=== PATIENT | female | born 1965 | race Two or more races ===

== ENCOUNTER 2018-01-30 12:59 | Emergency (ER) | payer OTHER ==
[2018-01-30 13:54] VITALS: BP 155/82
--- NOTE | 2018-01-30 13:59 | ED ---
Throat Pain/Nasal Congestion - HPI Summary HPI Summary: This patient is a 52 year old F BIBA to ED from her own residence with a chief complaint of foreign body stuck in her throat since 1100. She was eating steak and choked on it. EMS reports she does not have difficulty breathing. She also has had previous episodes of foreign bodies stuck in her throat, but is usually able to clear it this time. The patient rates the pain 2/10 in severity. Symptoms aggravated by nothing. Symptoms alleviated by nothing. Patient reports that she is currently unable to swallow water. Current vitals include 88 BPM, 92 O2 sat, and BP 152/90. Patient is a smoker. Home Medications Medication Instructions Recorded Confirmed Type Albuterol HFA INHALER* [Proair Hfa 2 puff INH Q4H PRN 10/20/12 08/22/13 History Inhaler*] Fesoterodine Fumarate [Toviaz] 8 mg PO DAILY 10/20/12 08/22/13 History Gabapentin CAP(*) [Neurontin 600 mg PO TID 10/20/12 08/22/13 History CAP(*)] Lisinopril TAB* [Prinivil TAB*] 5 mg PO DAILY 10/20/12 08/22/13 History LoraTADine TAB(NF) [Claritin TAB*] 10 mg PO DAILY 10/20/12 08/22/13 History Mirtazapine TAB* [Remeron TAB*] 7.5 mg PO BEDTIME 10/20/12 08/22/13 History Omeprazole CAP* [PriLOSEC CAP*] 40 mg PO DAILY 10/20/12 08/22/13 History Symbicort 4.5 - 80 act INH BID 06/25/13 08/22/13 History risperiDONE TAB* [Risperdal*] 3 mg PO BEDTIME 06/25/13 08/22/13 History Vilazodone (NF) [Viibryd] 40 mg PO DAILY 08/22/13 08/22/13 History - History of Current Complaint Chief Complaint: EDForeignBodyEsophag Time Seen by Provider: 01/30/18 13:07 Hx Obtained From: Patient, EMS Onset/Duration: Sudden Onset, Lasting Hours, Still Present Severity: Mild - 2/10 Associated Signs And Symptoms: Positive: FB Sensation Cough: None Related History: Other (Noted In Comments) - prior episodes, cleared spontaneously - Allergies/Home Medications Allergies/Adverse Reactions: Allergies Allergy/AdvReac Type Severity Reaction Status Date / Time No Known Allergies Allergy Verified 08/22/13 12:53 PMH/Surg Hx/FS Hx/Imm Hx Previously Healthy: No Endocrine/Hematology History: Reports: Hx Diabetes Denies: Hx Anticoagulant Therapy, Hx Thyroid Disease Cardiovascular History: Reports: Hx Hypertension Denies: Hx Congestive Heart Failure, Hx Pacemaker/ICD Respiratory History: Reports: Hx Asthma Denies: Hx Chronic Obstructive Pulmonary Disease (COPD) GI History: Reports: Other GI Disorders - acid reflux, prior episodes of esophageal foreign body sensation Musculoskeletal History: Reports: Hx Arthritis Sensory History: Reports: Hx Hearing Aid Neurological History: Denies: Hx Dementia, Hx Seizures Psychiatric History: Reports: Hx Anxiety, Hx Depression, Hx Post Traumatic Stress Disorder, Hx Inpatient Treatment, Hx Community Mental Health Tx, Hx Bipolar Disorder, Hx Suicide Attempt, Hx Substance Abuse Denies: Hx Eating Disorder, Hx of Violent Episodes Against Others - Cancer History Hx Chemotherapy: No Hx Radiation Therapy: No - Surgical History Surgery Procedure, Year, and Place: C-sections x 2 Infectious Disease History: No Infectious Disease History: Denies: Hx Hepatitis, Hx Human Immunodeficiency Virus (HIV), Traveled Outside the [place] in Last 30 Days - Family History Known Family History: Positive: Cardiac Disease - Social History Alcohol Use: None Substance Use Type: Reports: None Smoking Status (MU): Current Every Day Smoker Type: Cigarettes Review of Systems Constitutional: Negative Positive: Other - foreign body sensation in throat, unable to swallow water Cardiovascular: Negative Positive: Other - denies difficulty breathing Gastrointestinal: Negative Skin: Negative Neurological: Negative Psychological: Normal All Other Systems Reviewed And Are Negative: Yes Physical Exam - Summary Physical Exam Summary: Appearance: Well-appearing, no pain distress, well-nourished Skin: Warm, color reflects adequate perfusion, dry Head: Normal Head/Face inspection, atraumatic Eyes: Conjunctiva clear ENT: Patient points to sternal notch for the level of obstruction, pharynx clear , no swelling, able to swallow secretions, not drooling Neck: Supple, no nodes, no JVD Respiratory: Lungs clear, normal breath sounds, no respiratory distress Cardio: RRR, No murmur, pulses normal, brisk capillary refill Abdomen: Soft, nontender Bowel sounds: Present Musculoskeletal: Strength Intact/ROM intact, no calf tenderness, no edema. Psychological: Normal Neuro: Alert, muscle tone normal, no focal deficit Triage Information Reviewed: Yes Vital Signs On Initial Exam: Initial Vitals Temp Pulse Resp BP Pulse Ox 97.8 F 88 18 152/90 92 01/30/18 13:00 01/30/18 13:00 01/30/18 13:00 01/30/18 13:00 01/30/18 13:00 Vital Signs Reviewed: Yes Diagnostics - Vital Signs Vital Signs Temp Pulse Resp BP Pulse Ox 01/30/18 13:00 97.8 F 88 18 152/90 92 - Laboratory Lab Statement: Any lab studies that have been ordered have been reviewed, and results considered in the medical decision making process. Re-Evaluation - Re-Evaluation First Eval Re-Evaluation Time: 13:36 Change: Improved Comment: The patient reports the foreign body has passed spontaneously. I had the patient drink 8 ounces of water and she drank it without choking, gagging, and aspiration. The glucose level was at 173. The patient will be discharged. Patient understands and is agreeable with this plan. EENT Course/Dx - Course Assessment/Plan: This patient is a 52 year old F BIBA to ED from her own residence with a chief complaint of foreign body stuck in her throat since 1100. In the ED course, the foreign body passed spontaneously and the patient was able to drink 8 ounces of water without choking, gagging, and aspiration. The glucose level by fingerstick was 173. The patient will be discharged with dx of tobacco use disorder, elevated blood pressure under poor control, and esophageal foreign body. Patient understands and is agreeable with this plan.High blood pressure noted. Pt medications reviewed this visit. - Differential Diagnoses Differential Diagnoses: Foreign Body - Diagnoses Provider Diagnoses: Tobacco abuse disorder, Elevated blood pressure reading with diagnosis of hypertension, Esophageal foreign body Discharge - Sign-Out/Discharge Documenting (check all that apply): Patient Departure - Discharge Plan Condition: Stable Disposition: HOME Patient Education Materials: Esophageal Foreign Body (ED) Referrals: Jose L Hall MD [Primary Care Provider] - 2 Days Additional Instructions: The meat in your throat passed spontaneously while you were in the ER. Return to the ER if you have new or worsening symptoms. - Billing Disposition and Condition Condition: STABLE Disposition: Home - Attestation Statements Document Initiated by Scribe: Yes Documenting Scribe: Garrett Lewis Provider For Whom Scribe is Documenting (Include Credential): Bindu Evans Scribe Attestation: IGarrett, scribed for Bindu Evans on 02/04/18 at 2224. Scribe Documentation Reviewed: Yes Provider Attestation: The documentation as recorded by the Garrett nguyen accurately reflects the service I personally performed and the decisions made by me, Bindu Evans
== END 2018-01-30 13:45 | disposition home or self-care (01) ==
LOC: ED 12:59
DX: T18.128A Food in esophagus causing other injury, initial encounter (principal); R03.0 Elevated blood-pressure reading, without diagnosis of hypertension; X58.XXXA Exposure to other specified factors, initial encounter; Y92.9 Unspecified place or not applicable; F17.210 Nicotine dependence, cigarettes, uncomplicated
CPT/HCPCS: 99282

== ENCOUNTER 2024-06-19 06:32 | Observation (INO) ==
[2024-06-19] MEDS: Albuterol/Ipratropium NEB.SOL (2.5/0.5 MG) 3 ML NEB.SOLN INH ONE (07:30)
[2024-06-19 07:35] LABS: ABS Basophils 0.1 10^3/uL (0.0-0.1); ABS Lymphocytes 0.7 10^3/uL (1.0-4.8); Hematocrit 43.7 % (35-45); Hemoglobin 14.9 g/dL (11.5-14.3); Lymphocyte % 6.1 %; Mean Corpuscular Hemoglobin 29.9 pg (27-33); Mean Corpuscular Hgb Conc 34.1 g/dL (31-36); Mean Corpuscular Volume 87.8 fL (80-97); Mean Platelet Volume 8.4 fL (7.5-11.2); Platelet Count 203 10^3/uL (150-450); Red Blood Count 4.98 10^6/uL (3.63-4.92); Red Cell Distribution Width 13.6 % (12-17); White Blood Count 11.8 10^3/uL (3.8-11.8)
[2024-06-19] MEDS: cefTRIAXone 1 gm/50 mL D5W 1 GM/50 ML BAG IV ONE (07:54)
[2024-06-19 07:57] LABS: Activated Partial Thrombo Time 28.7 seconds (26.0-38.0); INR 1.13 (0.85-1.14)
[2024-06-19] MEDS: Azithromycin 500 mg/250 ml NS 500 MG/250 ML BAG IVPB ONE (08:08)
[2024-06-19 08:09] LABS: Albumin 3.8 g/dL (3.5-5.7); Albumin/Globulin Ratio 1.5 (1-3); Calcium 9.3 mg/dL (8.6-10.3); Creatinine, Serum 1.17 mg/dL (0.51-0.95); Direct Bilirubin 0.1 mg/dL (0.03-0.18); Globulin 2.6 g/dL (2-4); HDL Cholesterol 23.9 mg/dL; Indirect Bilirubin 0.5 mg/dL (0.3-1.0); Potassium 3.7 mmol/L (3.5-5.0); Total Bilirubin 0.6 mg/dL (0.2-1.0); Total Protein 6.4 g/dL (6.4-8.9); eGFR CKD-EPI 54.1 (>60)
[2024-06-19] MEDS ORDERED: Polyethylene Glycol 3350 17 GM PACKET PO PRN (08:46)
[2024-06-19] MEDS ORDERED: Al Hydrox/Mg Hydrox/Simet LIQ 30 ML UDC PO PRN (08:46)
[2024-06-19 08:59] LABS: High Sensitivity Troponin 1 Hr 37 pg/mL (<15)
[2024-06-19] MEDS ORDERED: Dextrose 50% Syringe 50 ml 25 GM/50 ML SYRINGE IV PUSH PRN (09:29)
[2024-06-19] MEDS: Enoxaparin 40 MG/0.4 ML SYR SUBCUT SCH (09:39)
[2024-06-19] MEDS ORDERED: Albuterol HFA INHALER 8 gm MDI INH PRN (09:59)
[2024-06-19] MEDS: NS 0.9% 1000 ml BAG 1,000 ML IV SCH (11:12)
[2024-06-19] MEDS: methylPREDNISolone SOD SUCC 40 mg/ml 1 ml VIAL IV SCH (13:24)
[2024-06-19 13:35] LABS: Urine Appearance Turbid; Urine Bilirubin Negative (Negative); Urine Blood 3+ (Negative); Urine Color Yellow; Urine Glucose 3+ (>=300 mg/dL) (Negative); Urine Ketones Negative (Negative); Urine Nitrite Negative (Negative); Urine Protein 1+ (>=30 mg/dL) (Negative); Urine Specific Gravity 1.038 (1.002-1.030); Urine Urobilinogen Negative (Negative); Urine pH 6.5 (5.0-8.0)
[2024-06-19 13:44] LABS: Urine Bacteria 3+ /HPF (Absent); Urine Red Blood Cell 3+(>10/hpf) /HPF (0-Trace); Urine Squamous Epithelial Cell Present /HPF (Absent); Urine White Blood Cell 2+(11-20/hpf) /HPF (0-Trace)
[2024-06-19] MEDS: Insulin GLARGINE 100 un/ml 10 ml VIAL SUBCUT SCH (22:04)
[2024-06-20 07:04] LABS: ABS Lymphocytes 1.1 10^3/uL (1.0-4.8); ABS Monocytes 0.8 10^3/uL (0.0-0.9); ABS Neutrophils 5.7 10^3/uL (1.5-7.6); Hemoglobin 13.9 g/dL (11.5-14.3); Lymphocyte % 14.8 %; Mean Corpuscular Hemoglobin 30.3 pg (27-33); Mean Corpuscular Hgb Conc 34.6 g/dL (31-36); Mean Corpuscular Volume 87.4 fL (80-97); Mean Platelet Volume 8.6 fL (7.5-11.2); Platelet Count 176 10^3/uL (150-450); Red Blood Count 4.58 10^6/uL (3.63-4.92); Red Cell Distribution Width 13.5 % (12-17); White Blood Count 7.7 10^3/uL (3.8-11.8)
[2024-06-20 07:19] LABS: Albumin 3.6 g/dL (3.5-5.7); Albumin/Globulin Ratio 1.6 (1-3); Calcium 9.3 mg/dL (8.6-10.3); Creatinine, Serum 0.79 mg/dL (0.51-0.95); Globulin 2.3 g/dL (2-4); Potassium 3.6 mmol/L (3.5-5.0); Total Bilirubin 0.5 mg/dL (0.2-1.0); Total Protein 5.9 g/dL (6.4-8.9); eGFR CKD-EPI 86.7 (>60)
[2024-06-20] MEDS ORDERED: cefTRIAXone 1 gm/50 mL D5W 1 GM/50 ML BAG IV SCH (07:30)
[2024-06-20] MEDS ORDERED: Azithromycin 500 mg/250 ml NS 500 MG/250 ML BAG IVPB SCH (08:00)
[2024-06-20] MEDS ORDERED: Nicotine GUM 4MG FRUIT FLAVOR PO PRN (08:27)
[2024-06-20] MEDS: Fluticasone NASAL SPRAY 50MCG 16 gm SPRAY BTL INTRANASAL SCH (08:50)
[2024-06-20] MEDS: Nicotine PATCH 21 MG/24 HR PATCH TRANSDERM SCH (08:53)
[2024-06-20] MEDS: cefTRIAXone 1 gm/50 mL D5W 1 GM/50 ML BAG IV SCH (08:54)
[2024-06-20] MEDS: VILAZODONE 40 MG PO SCH (11:06)
[2024-06-20] MEDS: Azithromycin 500 mg/250 ml NS 500 MG/250 ML BAG IVPB SCH (11:07)
[2024-06-20] MEDS: buPROPion SR 200 mg TAB.SR PO SCH (13:05)
[2024-06-20 14:17] VITALS: BP 136/70
== END 2024-06-20 14:20 | disposition home or self-care (01) ==
LOC: ED 06:32 → EDHOLD 06:32 → MED 13:57
PROVIDERS: ADMIT Internal Medicine; ATTEND Internal Medicine